=== PATIENT | female | born 1955 | race Caucasian/White ===

== ENCOUNTER 2019-04-27 09:51 | Day surgery (SDC) | payer MEDICAID, SELFPAY ==
[2019-04-26 09:30] VITALS: BMI 44.3
--- NOTE | 2019-04-27 10:06 | ANES.PREANE2 ---
Pre-Anesthetic Assessment Pre-Anesthetic Assessment: Height/Weight: Height 1.52 m Weight 102.965 kg Preop Diagnosis: h/o colon polyps Proposed Procedure: Operation Date: 04/27/19 11:00 Proposed Procedures p Colonoscopy 35324 Z86.010(Not Applicable) - Ramsey Reese MD Social: Packs per day: 1 Pack years: 20 Comment: quit' Exam: Pre-Anes Outpt Exam: alert, oriented x 3, clear to auscultation bilaterally and regular rate & rhythm Airway: Submandibular: WNL MP: 1 CV/HEM: CV/HEM: HTN Comments: rx'd 10y : Comments: prolapsed uterus, frequency/urgency Metabolic: Metabolic: Hyperlipidemia Musc/skel: Musc/skel: Lower Back Pain Comments: nonradiating Anesthetic Plan: ASA status: II Anesthesia: MAC PFSH Anesthesia PFSH: Social History Smoking and tobacco status: former smoker Quit status (tobacco): has quit using tobacco Second hand smoke exposure: No Alcohol intake: never Household members: spouse Marital status: Current occupational status: retired History of recent travel: No Data Anesthesia Cardiac Studies: No Data to Display
[2019-04-27 10:57] VITALS: BP 130/86; PULSE 88; RESP 20; TEMP 37.2; O2SAT 96
[2019-04-27] MEDS: sodium chloride 0.9% 1,000 ML 30 ML (11:00)
--- NOTE | 2019-04-27 11:08 | PM.HPUD ---
H&P update H&P Update: DATE OF SURGERY/PROCEDURE: 04/27/19 DATE H&P PERFORMED: 04/20/19 H&P UPDATE INFORMATION: H&P completed within last 30 days and No changes to prior documentation PREOP DIAGNOSIS: History of colon polyp PLANNED PROCEDURE: Operation Date: 04/27/19 11:00 Proposed Procedures p Colonoscopy 77946 Z86.010(Not Applicable) - Ramsey Reese MD Full H&P Perinent History: Medical/Surgical History: Medical History (Updated 04/21/19 @ 11:14 by Ramsey Reese MD) History of colon polyps (Acute ~2006) 3-5 yrs ago in [facility] Hyperlipidemia (Acute) Hypertension (Acute) Family History: Family History (Updated 04/19/19 @ 09:02 by Gretchen Veras RN) Denies family history of Anesthesia complication Bleeding disorder Social History: Social History Smoking and tobacco status: former smoker Quit status (tobacco): has quit using tobacco Second hand smoke exposure: No Alcohol intake: never Household members: spouse Marital status: Current occupational status: retired History of recent travel: No
[2019-04-27 12:21] VITALS: BP 147/92; PULSE 79; RESP 16; TEMP 36.5; O2SAT 97
[2019-04-27 12:36] VITALS: BP 114/73; PULSE 84; RESP 18; TEMP 36.6; O2SAT 96
--- NOTE | 2019-04-27 12:53 | ANE.PACU2 ---
 Inpatient post-anesthesia follow up: Airway intact: Yes Vital signs: Temperature 97.9 F Pulse Rate 84 Respiratory Rate 18 Blood Pressure 114/73 Pulse Oximetry 96 Oxygen Delivery Me thod Room Air Oxygen Flow Rate 3 Fraction of Inspir ed Oxygen Hydration adequate: Yes Nausea and vomiting: No Pain level: 1 Mental status: Baseline Additional Comments: Spoke with Dr Madsen and Dr Reese about pt Bradycardia during procedure and agreed to hold pt for 30 min and if no Bradycardia discharge to follow up with PCP for workup. Spoke with pt who agreed to follow up with PCP. Pt to call for appointment today.
[2019-04-27 12:55] VITALS: BP 107/68; PULSE 90; RESP 18; TEMP 36.4; O2SAT 97
--- NOTE | 2019-04-27 13:04 | SUR.PHASEII ---
PT'S HEART RATE MONITORED WITH NO FURTHER BRADYCARDIA NOTED. TOLERATING PO FLUIDS WELL. FAMILY AT BEDSIDE
[2019-04-27 13:24] VITALS: BP 134/84; PULSE 93; RESP 18; O2SAT 96
== END 2019-04-27 13:55 | disposition home or self-care (01) ==
PROVIDERS: Family Provider Physician Assistant Medical; PCP Physician Assistant Medical; Visit Provider Surgery
PROC: 0DJD8ZZ Inspection of Lower Intestinal Tract, Via Natural or Artificial Opening Endoscopic (ICD-10-PCS; CPT 45378; principal; 2019-04-27 11:00)
DX: Z12.11 Encounter for screening for malignant neoplasm of colon (principal); D12.6 Benign neoplasm of colon, unspecified; K57.30 Diverticulosis of large intestine without perforation or abscess without bleeding; Z86.010 Personal history of colon polyps; E78.5 Hyperlipidemia, unspecified; I10 Essential (primary) hypertension; Z87.891 Personal history of nicotine dependence
CPT/HCPCS: 12345; 45385; 88305; 96365; J0694; J2704; J3490; J7030

== ENCOUNTER 2019-10-19 06:54 | Outpatient (CLI) | payer MEDICAID, SELFPAY ==
--- NOTE | 2019-10-19 07:03 | MM_ITS ---
WS: [id number] BILATERAL SCREENING DIGITAL MAMMOGRAM WITH CAD HISTORY: SCREEN COMPARISON: 05/25/2018 and 02/23/2015 Bilateral CC and MLO views submitted. Computer aided detection analyzed. Breast composition: There are scattered areas of fibroglandular density. No suspicious masses, microc alcifications or architectural distortion. There are a few scattered stable calcifications. MM/[place] [id number] IMPRESSION: BI-RADS: 2-Benign FOLLOW UP: 1 Year Follow-up
== END 2019-10-19 06:55 | disposition home or self-care (01) ==
LOC: RADSHAW 06:57
PROVIDERS: PCP Physician Assistant Medical; Visit Provider Physician Assistant Medical
DX: Z12.31 Encounter for screening mammogram for malignant neoplasm of breast (principal)
CPT/HCPCS: 77067

== ENCOUNTER → 2021-04-03 09:27 | Outpatient (BNVA) | payer MEDICAID, SELFPAY | PROVIDERS: PCP Physician Assistant Medical; Visit Provider Orthopaedic Surgery | DX: M17.11 Unilateral primary osteoarthritis, right knee (principal) | CPT/HCPCS: 73560 ==

== ENCOUNTER 2021-05-06 10:58 | Observation (INO) | payer MEDICAID, SELFPAY ==
[2021-04-30 11:30] VITALS: BMI 44.7
--- NOTE | 2021-04-30 11:49 | P.ANESASSM_ITS ---
Pre-Anesthetic Assessment Height/Weight: Height 1.52 m Weight 103.873 kg Preop Diagnosis: History of colon polyp Operation Date: 05/06/21 07:00 Proposed Procedures p Total Knee Arthroplasty 60000 M17.11(Right) - Duong Olivas MD Familial anesthetic complications: None Social No alcohol and No tobacco Exam alert, oriented x 3, clear to auscultation bilaterally and regular rate & rhythm Airway Mallampati: Class III Dentition: false CV/HEM Hypertension Metabolic Hyperlipidemia and Morbid Obesity Anesthetic Plan ASA status: 2 Anesthesia: MAC and Regional (specify below) Other: SAB + Adductor Medications/Allergies Home Medications Medication Instructions Recorded Confirmed Last Taken Type lisinopril 20 1 tab PO DAILY 04/19/19 04/30/21 04/27/19 08:00 History mg-hydrochlorothiazide 25 mg tablet lovastatin 20 mg tablet 20 mg PO DAILY 04/19/19 04/30/21 04/26/19 19:00 History potassium 99 mg tablet 99 mg PO DAILY tab 04/19/19 04/30/21 04/26/19 07:00 History ibuprofen 200 mg tablet 200 mg PO Q6H PRN 04/20/19 04/30/21 04/23/19 History multivitamin 1 tab PO QDAY 04/20/19 04/30/21 04/26/19 07:00 History fluticasone propionate 50 1 spray INTRANASAL DAILY 04/03/21 04/30/21 Unknown History mcg/actuation nasal spray,suspension (Flonase Allergy Relief) Allergies Allergy/AdvReac Type Severity Reaction Status Date / Time atorvastatin [From Lipitor] AdvReac Intermediate ADR-Cramping Verified 04/03/21 09:09 of the [facility] Anesthesia Medical History Diverticulosis History of colon polyps (~2006) 3-5 yrs ago in [facility]. Today patient was found to have another colon polyp that was excised Hyperlipidemia Hypertension Surgical History H/O colonoscopy H/O knee surgery right arthroscopic surgery History of hysterectomy partial History of knee replacement left knee History of tonsillectomy 1966 Family History Denies family history of Anesthesia complication Bleeding disorder Social History Smoking and tobacco status: never smoked Quit status (tobacco): has quit using tobacco Second hand smoke exposure: No Alcohol intake: never Household members: spouse Marital status: Current occupational status: retired History of recent travel: No Data Anesthesia Cardiac Studies: No Data to Display
[2021-04-30 12:40] LABS: Anion Gap 16.7 (5-19); Blood Urea Nitrogen 14 mg/dL (8-23); Calcium 10.4 mg/dL (8.5-10.5); Carbon Dioxide 26 mmol/L (22-29); Chloride 99 mmol/L (98-107); Glomerular Filtration Rate 124.2 mL/min (90-130); Glucose 111 mg/dL (65-115); Osmolality Calculated 287 mOsm/kg (285-295); Potassium 3.7 mmol/L (3.5-5.1); Sodium 138 mmol/L (136-145)
[2021-05-06] VITALS (12 sets, daily range): BP systolic 108–125; BP diastolic 66–86; PULSE 87–119; RESP 15–18; TEMP 36.3–36.8; O2SAT 94–99
[2021-05-06] MEDS: CELEcoxib 200 mg Capsule 400 MG PO (06:01)
[2021-05-06] MEDS: acetaminophen 500 mg Tablet 1000 MG PO ×2 (06:02→12:06)
[2021-05-06] MEDS: oxyCODONE 20 mg ER (12 HR) Tablet PO (06:02)
[2021-05-06] MEDS: gabapentin 300 mg Capsule PO ×2 (06:02→18:35)
[2021-05-06] MEDS: sodium chloride 0.9% 1,000 ML 30 ML IV (06:06)
--- NOTE | 2021-05-06 06:40 | P.ANESUD_ITS ---
Pre-Anesthetic Update Pre-Anesthetic Assessment: Date of Surgery/Procedure: 05/06/21 Preop Desi gnosis: OsteoarthritisRight knee Proposed Procedure: Operation Date: 05/06/21 07:00 Proposed Procedures p Total Knee Arthroplasty 54533 M17.11(Right) - Duong Olivas MD Any changes to Pre-Anesthetic Assessment?: No Last Intake: Intake Last Liquid Date 05/05/21 Last Liquid Time 22:00 Last Solid Date 05/05/21 Last Solid Time 22:00 Vitals: Respiratory Rate 16 05/06/21 06:02 Respiratory Effort 05/06/21 06:02 Respiratory Depth Normal 05/06/21 06:02 Respiratory Patter n 05/06/21 06:02 Pulse Oximetry 97 05/06/21 06:02 Exam: Pre-Anes Outpt Exam: alert, oriented x 3, clear to auscultation bilaterally and regular rate & rhythm Cardiac Studies: No Data to Display
[2021-05-06] MEDS: tranexamic acid 1,000 mg/10mL SDV 1000 MG IV (07:00)
--- NOTE | 2021-05-06 07:00 | W.PM.OPSFHP ---
Same Day Surgery H&P Indication for Procedure/HPI DATE OF PROCEDURE: May 06, 2021 CHIEF COMPLAINT/INDICATIONFOR SURGICAL PROCEDURE: Osteoarthritis right knee here for right total knee arthroplasty PREOP DIAGNOSIS: OsteoarthritisRight knee PLANNED PROCEDURE: Operation Date: 05/06/21 07:00 Proposed Procedures p Total Knee Arthroplasty 60666 M17.11(Right) - Duong Olivas MD 65-year-old female with progressive right knee pain. History of left total knee arthroplasty in 2019 did well. Right knee now to the point where she can scarcely ambulate more than a block without severe discomfort Medications/Allergies* Home Medications Medication Instructions Recorded Confirmed Type lisinopril 20 1 tab PO DAILY 04/19/19 05/06/21 History mg-hydrochlorothiazide 25 mg tablet lovastatin 20 mg tablet 20 mg PO DAILY 04/19/19 05/06/21 History potassium 99 mg tablet 99 mg PO DAILY tab 04/19/19 05/06/21 History ibuprofen 200 mg tablet 200 mg PO Q6H PRN 04/20/19 05/06/21 History multivitamin 1 tab PO QDAY 04/20/19 05/06/21 History fluticasone propionate 50 1 spray INTRANASAL DAILY 04/03/21 05/06/21 History mcg/actuation nasal spray,suspension (Flonase Allergy Relief) Allergies/Adverse Reactions Allergy/AdvReac Type Severity Reaction Status Date / Time atorvastatin [From Lipitor] AdvReac Intermediate ADR-Cramping Verified 04/03/21 09:09 of the Muscles Current Medications: Generic Name Dose Route Start Last Admin Trade Name Freq PRN Reason Stop Dose Admin Sodium Chloride 1,000 mls @ 30 mls/hr 05/06/21 05:45 05/06/21 06:06 Sodium Chloride 0.9% IV 05/07/21 05:44 30 mls/hr .Q24H RACHEL Administration Pertinent History/Comorbid Conditions* Medical History (Updated 06/13/19 @ 15:53 by Duong Olivas MD) Diverticulosis History of colon polyps (~2006) 3-5 yrs ago in [facility]. Today patient was found to have another colon polyp that was excised Hyperlipidemia Hypertension Surgical History (Updated 04/21/19 @ 11:13 by Ramsey Reese MD) H/O colonoscopy H/O knee surgery right arthroscopic surgery History of hysterectomy partial History of knee replacement left knee History of tonsillectomy 1966 Family History (Updated 04/19/19 @ 09:02 by Gretchen Veras RN) Denies family history of Anesthesia complication Bleeding disorder Social History Smoking and tobacco status: never smoked Quit status (tobacco): has quit using tobacco Second hand smoke exposure: No Alcohol intake: never Household members: spouse Marital status: Current occupational status: retired History of recent travel: No Pertinent Exam Findings alert, oriented x 3, clear to auscultation bilaterally, regular rate & rhythm and operative site marked Recommendations Surgery/Procedure today Coding Level of Care Code Acute [employer] for Jacob Ley
--- NOTE | 2021-05-06 07:01 | PM.OP ---
Operative Report Date of procedure: May 06, 2021 Pre-op diagnosis: Preop Diagnosis Osteoarthritis Right knee Post-op diagnosis: same Post-op diagnosis: Same Post-op findings: Same Procedure done: Right total knee arthroplasty Implants: Suzanne total knee arthroplasty components were used includin) Size 4 triathalon posterior stabilized femoral component 2) Size 3 universal tibial baseplate 3) 32 mm /9 mm thickness Tritanium asymetric patella 4) Size 3/13 mm thickness CR tibial bearing insert Pathology: none sent Surgeon: Duong Olivas Anesthesia: Nerve Block (Spinal, adductor canal block) Estimated blood loss (mL): 200 Findings: Khushboo had eburnated bone in all 3 compartments with varus alignment. She had large medial osteophytes off the tibia and femur. She had significant stiffness with preoperative motion from 10 to only approximately 30 degrees Condition: stable Disposition: PACU Procedure: The patient was taken to the operating room. Patient was given 1 g of tranexamic acid . The above anesthesia provided by the anesthesia service. A timeout was performed. The patient was prepped and draped in the usual fashion with the lower extremity exposed. A anterior incision was made, midline, from a point proximal to the patella to the distal tibial tubercle. The knee was entered through a medial parapatellar approach. The patella could be displaced laterally and the knee flexed. The patellar fat pad was resected to provide better visibility. Retractors were placed medially and laterally adjacent to the tibial plateau. The femoral canal was drilled in line with the longitudinal axis of the femur. Intramedullary femoral guide for used to make a distal femoral cut in 5 degrees of valgus, resecting 8 mm from the more prominent condyle. Next the extra medullary tibial guide was placed in alignment with the longitudinal axis of the tibia. The cutting guides were set to remove just over 9 mm from the high lateral tibial plateau. The proximal tibia was then cut. The femoral measuring guide was then placed over the distal femur. Rotation was verified checking the relationship of the guide to the condyle and the trochlear groove. The femur was measured and cut for the desired femoral component. The desired tibial baseplate was then chosen. A trial reduction with the femur tibial baseplate and polyethylene was done, assuring that the knee was stable throughout full motion. Ligament balancing release of the deep and proximal superficial medial collateral ligament.The tibia was prepared for the tibial baseplate. Patellar thickness was then measured. The patella was cut removing articular cartilage and prepared for appropriate size patellar button. surfaces were cleaned with a gentamicin solution. The femur tibia and patella were then cemented into place. The posterior capsule and collateral ligaments were then injected with a solution of 100 mL of 0.2% ropivacaine, 1 mL of a 1:1000 epinephrine solution, 30 mg of Toradol, and 1 g of tranexamic acid. Final polyethylene component was then snapped into place into the tibia. The extensor retinaculum was closed with a running 1 Stratafix interrupted 1 Ethibond. The subcutaneous tissues were closed with 2-0 Vicryl and the skin was closed with a running 4-0 Stratafix. The wound was covered with a Dermabond Prineo dressing. It was covered with 4xrs and a compressive Tubigauze was applied. The patient was taken to recovery room in stable condition. At the conclusion of the procedure Motion from full extension to 90 degrees was obtained.
--- NOTE | 2021-05-06 07:06 | ANES.PROC ---
Anesthesia Procedures Procedure/Date: 05/06/21 Nerve Block ^: Nerve Block 1: Main Anesthesia: spinal anesthesia block Time Out Performed: Yes (8029) Consent: requested by attending/covering physician and from patient Nerve block location: adductor canal Anesthesia monitors applied: pulse oximetry and BP cuff Anesthetic Used: bupivacaine 0.5% Amount of anesthesia used (mL): 20 Ultrasound used to: recognize landmarks and visualize and ID femerol nerve Nerve Stimulator Used?: No Interscalene/Femoral BLK: 4 stimuplex 21 g needle used for position and inplane approach, visualize local anesthetic spread and no vascular puncture identified Injection: neg aspiration of heme Complications: none Additional Comments: After time out sterile prep, using sterile technique, and using real time US guidance for target selection needle was inserted with real time visualization of needle entry and real time visualization of needle advancement toward intended target. Negative aspiration. LA injected incrementally with negative aspiration every 5 cc and real time US visualization of LA spread throughout procedure. Some anxiety with procedure, however patient preferred no sedation. Image(s) saved.
[2021-05-06] MEDS: sodium chloride 0.9% 100 mL Bag XX (08:01)
[2021-05-06] MEDS: tranexamic acid 1,000 mg/10mL SDV 1000 MG XX (08:01)
[2021-05-06] MEDS: ketorolac 30 mg/mL INJ XX (08:02)
[2021-05-06] MEDS: EPINEPHrine 1 mg/mL INJ XX (08:03)
--- NOTE | 2021-05-06 10:20 | XR_ITS ---
WS: [id number] KNEE RIGHT TECHNIQUE: 2 views of the right knee CLINICAL INFORMATION: Right Total Knee arthroplasty COMPARISON: April 03, 2021 FINDINGS: Postoperative RIGHT TKA is new from April 03, 2021. Hardware appears well seated. Osteopenia. Patellar resurfacing. Soft tissue edema. Postoperative air- fluid within the suprapatellar bursa. XR/XR knee RT 1-2V 55617 IMPRESSION: RIGHT TKA normal for postoperative purposes. Kellgren-Shmuel Classification: NA
[2021-05-06] MEDS: CELEcoxib 200 mg Capsule PO (15:31)
[2021-05-06] MEDS: HYDROcodone-acetaminophen 5-325 mg Tablet 1 TAB PO ×3 (15:31→23:51)
--- NOTE | 2021-05-06 15:41 | ANE.PACU2 ---
Inpatient post-anesthesia follow up: Airway intact: Yes Vital signs: Temperature 98.0 F Pulse Rate 92 Respiratory Rate 16 Blood Pressure 115/81 Pulse Oximetry 95 Oxygen Delivery Me thod Room Air Oxygen Flow Rate 6 Fraction of Inspir ed Oxygen Hydration adequate: Yes Nausea and vomiting: No Pain level: 5 Mental status: Baseline
[2021-05-06] MEDS: acetaminophen 325 mg Tablet 650 MG PO (19:53)
[2021-05-07 04:00] VITALS: BP 116/72; PULSE 82; RESP 16; TEMP 36.6; O2SAT 95
[2021-05-07] MEDS: HYDROcodone-acetaminophen 5-325 mg Tablet 1 TAB PO ×3 (04:08→12:06)
[2021-05-07] MEDS: sodium chloride 0.9% 1,000 ML 100 ML IV (04:09)
[2021-05-07 04:27] LABS: Hemoglobin 10.8 g/dL (11.5-15.3)
[2021-05-07] MEDS: acetaminophen 325 mg Tablet 650 MG PO ×2 (06:08→13:26)
[2021-05-07] MEDS: CELEcoxib 200 mg Capsule PO (06:09)
[2021-05-07] MEDS: gabapentin 300 mg Capsule PO (08:14)
[2021-05-07] MEDS: hydroCHLOROthiazide 25 mg Tablet PO (08:14)
[2021-05-07] MEDS: lisinopril 20 mg Tablet PO (08:14)
[2021-05-07 08:15] VITALS: BP 118/73; PULSE 84; RESP 16; TEMP 36.7; O2SAT 93
--- NOTE | 2021-05-07 09:28 | PC.NURSE ---
up with PT
[2021-05-07] MEDS: aspirin 325 mg EC Tablet PO (09:55)
[2021-05-07 11:00] VITALS: BP 111/70; PULSE 73; RESP 18; O2SAT 96
--- NOTE | 2021-05-07 12:18 | PM.DCS ---
Discharge Providers Date of Admission: 05/06/21 10:58 Date of Discharge: May 07, 2021 Attending Provider at Admission: Duong Olivas MD Attending Provider at Discharge: Duong Olivas MD Primary Care Provider: Aby Aparicio Diagnoses at Discharge Discharge Diagnosis (1) Osteoarthritis of right knee: Status: Resolved (2) Status post right knee replacement: Status: Acute (3) Obesity: Status: Acute Reason for Visit Reason for Visit: Osteoarthritis of right knee Hospital Course Hospital Course The patient tolerated surgery well. They remained hemodynamically stable. They was begun on aspirin and foot for DVT prophylaxis. The patient was mobilized with therapy beginning the day of surgery and by the first postoperative day independent with the walker. As the pain was adequately controlled and they were fully mobile they were discharged home. Physical Exam Narrative: On the day of discharge the knee incision was clean. They had no drainage. There is minimal swelling in the thigh and knee and the calf. No distal neurovascular deficits were noted Urinary Catheter Management: [place]: Cath Placed During This Visit: yes, but has since been removed by the nurse Reason for Continuing Indwelling Catheter: Decision to DC Catheter Urinary Catheter Date of Insertion: 05/06/21 Urinary Catheter Time of Insertion: 07:15 Date Urinary Catheter Removed: 05/07/21 Time Urinary Catheter Discontinued: 12:10 Discharge Data Studies Completed and Pending Completed Studies During Hospitalization Category Date Time Status XR knee RT 1-2V [id number] Routine Exams 05/06/21 10:20 Completed Radiology Impressions Knee X-Ray 05/06/21 10:20 IMPRESSION: RIGHT TKA normal for postoperative purposes. Kellgren-Shmuel Classification: NA Laboratory Results Hgb 10.8 g/dL (11.5-15.3) L 05/07/21 04:00 Sodium 138 mmol/L (136-145) 04/30/21 11:44 Potassium 3.7 mmol/L (3.5-5.1) 04/30/21 11:44 Chloride 99 mmol/L (98-107) 04/30/21 11:44 Carbon Dioxide 26 mmol/L (22-29) 04/30/21 11:44 Anion Gap 16.7 (5-19) 04/30/21 11:44 BUN 14 mg/dL (8-23) 04/30/21 11:44 Creatinine 0.5 mg/dL (0.5-0.9) 04/30/21 11:44 GFR Calculation 124.2 mL/min (90-130) 04/30/21 11:44 Glucose 111 mg/dL (65-115) 04/30/21 11:44 Calculated Osmolality 287 mOsm/kg (285-295) 04/30/21 11:44 Calcium 10.4 mg/dL (8.5-10.5) 04/30/21 11:44 Vitals Last Vital Signs Temp 98.0 F 05/07/21 08:15 Pulse 73 05/07/21 11:00 Resp 18 05/07/21 11:00 BP 111/70 05/07/21 11:00 Pulse Ox 96 05/07/21 11:00 Discharge Plan Discharge Patient Disposition: Home Condition: Stable Prescriptions: New hydrocodone-acetaminophen 5-325 mg Tablet 1 tab PO Q4H PRN (Reason: Moderate Pain) 7 Days Qty: 4 0RF aspirin 325 mg Tablet,Delayed Release (Dr/Ec) 325 mg PO DAILY 30 Days 0RF acetaminophen 325 mg Tablet 650 mg PO Q8H 14 Days Qty: 84 0RF celecoxib 200 mg Capsule 200 mg PO Q12H 14 Days Qty: 28 0RF gabapentin 300 mg Capsule 300 mg PO BID 7 Days Qty: 14 0RF Continued multivitamin Tablet 1 tab PO QDAY 0RF lovastatin 20 mg tablet 20 mg PO DAILY 0RF lisinopril-hydrochlorothiazide 20-25 mg tablet 1 tab PO DAILY 0RF potassium 99 mg tablet 99 mg PO DAILY 0RF fluticasone propionate [Flonase Allergy Relief] 50 mcg/actuation spray,suspension 1 spray intranasal DAILY 0RF Rx Instructions: administer into each nostril Discontinued ibuprofen 200 mg tablet 200 mg PO Q6H PRN (Reason: Pain) 0RF Discharge Orders: Discharge Order (Routine); Ordered 05/07/21 Ordered By: Duong Olivas Referrals: Duong Olivas MD [Physician] - 05/10/21 8:00 am Discharge Diet: Advance as tolerated Discharge Activity: Limit activity as instructed Patient Instructions: Precautions after Total Joint Replacement Surgery (DC), Revision Total Joint Arthroplasty (DC), Opioid Safety Activity Restrictions/Additional Instructions: Okay to shower Keep Tubigauze sleeve in place for swelling. Okay to remove for hygiene. Apply FirstIce up to 20 min/hr for pain and swelling Take Celebrex twice a day for the next 15 days for pain , discontinue other anti-inflammatories Take Neurontin twice a day for 7 days. Take Tylenol 325mg (2 tabs) as needed 3 times a day for mild pain take hydrocodone for breakthrough pain. Exercises per physical therapy. May weight-bear as tolerated on total knee arthroplasty IF HAVE ANY PROBLEMS OR QUESTIONS CALL [facility] AT AND ASK TO HAVE DR. LUZ ANDRES. Discharge Attestations Time Spent in Discharge Care*: other Quality Metrics Clinical Quality Measures [ No reported AMI, CVA or VTE this stay] Coding Level of Care Code Acute [facility] FW DC note Diagnoses Osteoarthritis of right knee M17.11 Status post right knee replacement Z96.651 Obesity E66.9
[2021-05-07 14:15] VITALS: BP 128/79; PULSE 93; RESP 16; TEMP 36.9; O2SAT 95
== END 2021-05-07 14:25 | disposition home or self-care (01) ==
LOC: OBGYN 12:57
PROVIDERS: Anesthesiology; Admitting Provider Orthopaedic Surgery; PCP Nurse Practitioner Family; Visit Provider Orthopaedic Surgery
PROC: (CPT 27447; principal; 2021-05-06 07:00)
DX: M17.11 Unilateral primary osteoarthritis, right knee (principal); E66.9 Obesity, unspecified; Z68.41 Body mass index [BMI] 40.0-44.9, adult; E78.5 Hyperlipidemia, unspecified; I10 Essential (primary) hypertension; Z87.891 Personal history of nicotine dependence
CPT/HCPCS: 27447; 36415; 51702; 64447; 73560; 76942; 80048; 85018; 87635; 97110; 97116; 97161; 97165; C1776; G0378; J0171; J0690; J1580; J1885; J2250; J2370; J2704; J2795; J3490; J7030

== ENCOUNTER → 2021-05-28 10:16 | Outpatient (BNVA) | payer MEDICAID, SELFPAY | PROVIDERS: PCP Nurse Practitioner Family; Visit Provider Orthopaedic Surgery | DX: Z96.651 Presence of right artificial knee joint (principal) | CPT/HCPCS: 73560; 73565 ==

== ENCOUNTER → 2021-07-02 09:42 | Outpatient (BNVA) | payer MEDICAID, SELFPAY | PROVIDERS: PCP Nurse Practitioner Family; Visit Provider Orthopaedic Surgery | DX: Z96.651 Presence of right artificial knee joint (principal) | CPT/HCPCS: 99212 ==

== ENCOUNTER 2022-01-31 07:33 | Outpatient (CLI) | payer MEDICARE, MEDICAID, SELFPAY ==
--- NOTE | 2022-01-31 07:42 | MM_ITS ---
WS: [id number] BILATERAL SCREENING DIGITAL TOMOSYNTHESIS MAMMOGRAM WITH CAD HISTORY: SCREENING COMPARISON: 10/19/2019 and 05/25/2018 Bilateral CC and MLO views with tomosynthesis and synthetic mammography submitted. Computer aided det ection analyzed. Breast composition: There are scattered areas of fibroglandular density. No suspicious masses, microc alcifications or architectural distortion. Stable calcifications in the anterior RIGHT breast. MM/[place] [id number] IMPRESSION: BI-RADS: 2-Benign FOLLOW UP: 1 Year Follow-up
== END 2022-01-31 07:34 | disposition home or self-care (01) ==
LOC: RAD 07:34
PROVIDERS: PCP Nurse Practitioner Family; Visit Provider Nurse Practitioner Family
DX: Z12.31 Encounter for screening mammogram for malignant neoplasm of breast (principal)
CPT/HCPCS: 77063; 77067

== ENCOUNTER 2023-02-05 12:00 | Outpatient (CLI) | payer MEDICARE, MEDICAID, SELFPAY ==
--- NOTE | 2023-02-05 12:00 | MM_ITS ---
WS: [id number] SCREENING DIGITAL TOMOSYNTHESIS MAMMOGRAM WITH CAD HISTORY: SCREENING COMPARISON: 01/31/2022, 10/19/2019 Bilateral CC and MLO with tomosynthesis views submitted. Synthetic mammography reviewed. Computer aid ed detection analyzed. Breast composition: There are scattered areas of fibroglandular density. No suspicious masses, microc alcifications or architectural distortion. Benign coarse calcification in the anterior and lateral RI GHT breast. IMPRESSION: MM/[place] [id number] BI-RADS: 2-Benign FOLLOW UP: 1 Year Follow-up
== END 2023-02-05 12:01 | disposition home or self-care (01) ==
LOC: MOBLMAM 12:08
PROVIDERS: PCP Nurse Practitioner Family; Visit Provider Nurse Practitioner Family
DX: Z12.31 Encounter for screening mammogram for malignant neoplasm of breast (principal)
CPT/HCPCS: 77063; 77067